=== PATIENT | male | born 1995 | race African-American/Black ===

== ENCOUNTER 2019-08-13 10:34 | Emergency (ER) | payer SELFPAY ==
[~2019-08-13] VITALS: Ht 180.3 cm; Wt 65.8 kg
[2019-08-13 13:47] VITALS: BP 106/79
[2019-08-13] MEDS ORDERED: methylPREDNISolone SOD SUCC 125 MG/2 ML VL IM ONE (14:00)
[2019-08-13] MEDS ORDERED: cefTRIAXone SOD 1,000 MG VL IM ONE (14:00)
== END 2019-08-13 14:11 | disposition home or self-care (01) ==
LOC: ER 10:34
DX: J03.90 Acute tonsillitis, unspecified (principal); J45.909 Unspecified asthma, uncomplicated; Z88.8 Allergy status to other drugs, medicaments and biological substances
CPT/HCPCS: 96372; 99283; J0696; J2930

== ENCOUNTER 2019-08-23 11:10 | Emergency (ER) | payer SELFPAY ==
[~2019-08-23] VITALS: Ht 180.3 cm; Wt 65.8 kg
[2019-08-23 13:14] VITALS: BP 116/75
[2019-08-23] MEDS ORDERED: cefTRIAXone SOD 1,000 MG VL IM ONE (15:00)
== END 2019-08-23 15:26 | disposition home or self-care (01) ==
LOC: ER 11:12
DX: J02.9 Acute pharyngitis, unspecified (principal); F17.210 Nicotine dependence, cigarettes, uncomplicated; F12.10 Cannabis abuse, uncomplicated; J45.909 Unspecified asthma, uncomplicated; Z88.8 Allergy status to other drugs, medicaments and biological substances
CPT/HCPCS: 96372; 99283; J0696